=== PATIENT | male | born 1955 | race African-American/Black ===

== ENCOUNTER 2020-08-10 15:42 | Inpatient (IN) | payer OTHER ==
[~2020-08-10] VITALS: Ht 180.3 cm; Wt 107.2 kg
[2020-08-10 18:12] LABS: CLARITY URINE CLEAR (CLEAR); COLOR URINE YELLOW (YELLOW); KETONES URINE NEGATIVE (NEGATIVE); LEUKOCYTE ESTERASE URINE NEGATIVE (NEGATIVE); NITRITE URINE NEGATIVE (NEGATIVE); OCCULT BLOOD URINE TRACE (NEGATIVE); PROTEIN URINE NEGATIVE (NEGATIVE); SPECIFIC GRAVITY URINE 1.024 (1.005-1.030); UROBILINOGEN URINE 0.2 E.U./dL (0.2-1.0)
[2020-08-10 19:39] LABS: BASOPHILS % 0.4 % (0.0-2.0); EOSINOPHILS % 1.1 % (0.0-5.0); HEMATOCRIT. 48.1 % (42.0-52.0); HEMOGLOBIN. 16.7 g/dL (14.0-18.0); LYMPHOCYTES % 34.1 % (20.0-50.0); MEAN CORPUSCULAR HEMOGLOBIN 29.1 pg (28.0-32.0); MEAN CORPUSCULAR VOLUME 83.6 fL (80.0-94.0); MEAN PLATELET VOLUME 8.2 fl (7.4-10.4); MONOCYTES % 8.6 % (2.0-8.0); NEUTROPHILS % 55.8 % (40.0-76.0); PLATELET 281 x1000/uL (130-400); RED BLOOD CELL COUNT 5.75 mill/uL (4.7-6.1); RED CELL DISTRIBUTION WIDTH 15.8 % (11.6-14.6)
[2020-08-10 19:46] LABS: CHLORIDE 109 mEq/L (98-107)
[2020-08-10 19:50] LABS: ETHANOL BLOOD < 10 mg/dL
[2020-08-10] MEDS ORDERED: ASPIRIN 81MG TABLET PO ONE (22:00)
[2020-08-10] MEDS ORDERED: NITROGLYCERIN 0.4MG TABLET SL SL PRN (22:00)
[2020-08-10 22:25] LABS: D-DIMER 0.37 mg/L FEU (<0.50); PARTIAL THROMBOPLASTIN TIME 26.3 sec (23.4-31.0); PROTHROMBIN TIME 10.3 sec (9.6-11.0)
[2020-08-11] VITALS (8 sets, daily range): BP systolic 108–146; BP diastolic 66–90
[2020-08-11] MEDS ORDERED: HYDROCODONE/ACETAMINOPHEN 5/325MG TABLET PO PRN (01:00)
[2020-08-11] MEDS ORDERED: DEXTROSE 50% WATER 50ML SYRINGE IV PRN (01:00)
[2020-08-11] MEDS ORDERED: ATOR40TA70 MT (01:17)
[2020-08-11] MEDS ORDERED: METF-414 MT (01:17)
[2020-08-11] MEDS: INSULIN LISPRO 100 UNITS/ML SUBCUT SCH ×4 (07:20→20:44)
[2020-08-11] MEDS: NITROGLYCERIN OINT 1GM/INCH UDPKT TD SCH ×3 (07:22→21:00)
[2020-08-11] MEDS: BLOOD SUGAR DIAGNOSTIC STRIP TEST SCH ×4 (07:22→20:44)
[2020-08-11 07:25] LABS: BASOPHILS % 0.3 % (0.0-2.0); EOSINOPHILS % 1.6 % (0.0-5.0); HEMATOCRIT. 43.7 % (42.0-52.0); MEAN CORPUSCULAR VOLUME 84.6 fL (80.0-94.0); MEAN PLATELET VOLUME 8.5 fl (7.4-10.4); MONOCYTES % 10.1 % (2.0-8.0); PLATELET 261 x1000/uL (130-400); RED BLOOD CELL COUNT 5.17 mill/uL (4.7-6.1); RED CELL DISTRIBUTION WIDTH 15.4 % (11.6-14.6)
[2020-08-11 07:52] LABS: CHLORIDE 107 mEq/L (98-107)
[2020-08-11 08:10] LABS: LDL CHOLESTEROL 59 mg/dL (5-100)
[2020-08-11 08:12] LABS: HDL CHOLESTEROL 58 mg/dL (40-59)
[2020-08-11] MEDS: ASPIRIN 81MG TABLET PO SCH (08:21)
[2020-08-11] MEDS: FAMOTIDINE 20MG TABLET PO SCH ×2 (08:22→16:42)
[2020-08-11] MEDS: METOPROLOL TARTRATE 50MG TABLET PO SCH ×2 (08:22→20:43)
[2020-08-11] MEDS: ENOXAPARIN 30MG/0.3ML SYR SUBCUT SCH ×2 (08:22→20:44)
[2020-08-12] VITALS (7 sets, daily range): BP systolic 116–133; BP diastolic 48–84
[2020-08-12] MEDS: BLOOD SUGAR DIAGNOSTIC STRIP TEST SCH ×2 (06:04→11:50)
[2020-08-12] MEDS: NITROGLYCERIN OINT 1GM/INCH UDPKT TD SCH (06:04)
[2020-08-12] MEDS: INSULIN LISPRO 100 UNITS/ML SUBCUT SCH ×2 (06:13→12:20)
[2020-08-12] MEDS ORDERED: METO-539 PO (09:57)
[2020-08-12] MEDS: ASPIRIN 81MG TABLET PO SCH (10:06)
[2020-08-12] MEDS: FAMOTIDINE 20MG TABLET PO SCH (10:07)
[2020-08-12] MEDS: METOPROLOL TARTRATE 50MG TABLET PO SCH (10:07)
[2020-08-12] MEDS: ENOXAPARIN 30MG/0.3ML SYR SUBCUT SCH (10:08)
== END 2020-08-12 12:20 | disposition home or self-care (01) | DRG 206 ==
LOC: ER 16:42 → 3WST 23:02 → EDBEDREQTM 23:03 → EDBEDREQ 23:03 → ENRESERV 23:46
PROVIDERS: ADMIT Internal Medicine; ATTEND Internal Medicine
DX: M94.0 Chondrocostal junction syndrome [Tietze] (principal); R65.10 Systemic inflammatory response syndrome (SIRS) of non-infectious origin without acute organ dysfunction; E11.9 Type 2 diabetes mellitus without complications; E66.9 Obesity, unspecified; E78.5 Hyperlipidemia, unspecified; G89.29 Other chronic pain; D72.829 Elevated white blood cell count, unspecified; E78.00 Pure hypercholesterolemia, unspecified; I10 Essential (primary) hypertension; M54.9 Dorsalgia, unspecified; Z87.891 Personal history of nicotine dependence; Z71.3 Dietary counseling and surveillance; Z68.33 Body mass index [BMI] 33.0-33.9, adult; Z79.899 Other long term (current) drug therapy
CPT/HCPCS: 36415; 71045; 80048; 80053; 80061; 80320; 81003; 82962; 83880; 84484; 85025; 85379; 93005; 93306; 99285; J1650; J1815; G0480